=== PATIENT | female | born 1995 | race Caucasian/White ===

== ENCOUNTER → 2021-12-26 09:34 | Outpatient (BNVA) | payer MEDICAID, SELFPAY | PROVIDERS: Referring Provider Nurse Practitioner; Visit Provider Orthopaedic Surgery | DX: M25.551 Pain in right hip (principal); M54.50 Low back pain, unspecified; G89.29 Other chronic pain | CPT/HCPCS: 73502 ==

== ENCOUNTER → 2022-01-11 11:18 | Outpatient (BNVA) | payer MEDICAID, SELFPAY | PROVIDERS: Visit Provider Physician Assistant | DX: M51.36 Other intervertebral disc degeneration, lumbar region (principal); M47.818 Spondylosis without myelopathy or radiculopathy, sacral and sacrococcygeal region; M16.51 Unilateral post-traumatic osteoarthritis, right hip; M41.9 Scoliosis, unspecified | CPT/HCPCS: 72110; 99205 ==

== ENCOUNTER 2022-05-28 19:43 | Emergency (ER) | payer MEDICAID, SELFPAY ==
[2022-05-28 20:41] VITALS: BP 144/88; PULSE 78; RESP 18; TEMP 36.6; O2SAT 100; BMI 25.8
--- NOTE | 2022-05-28 22:24 | W.ED.ALLEREA ---
HPI - Allergic Reaction General: Chief complaint: Allergic Reaction Stated complaint: Allergic reaction\Rash\Legs Swelling Time Seen by Provider: 05/28/22 22:22 History of Present Illness: HPI narrative: 26-year-old female comes in for generalized urticaric rash that started on Saturday. Patient does not know of any exposure to allergen. Patient does have a history of allergies to latex and natural rubber. Patient appears nontoxic. Patient reports increased swelling to lower extremities along with the rash. Respirations are even lungs are clear to auscultation. Patient has some significant swelling to the face. Associated symptoms: Reports nausea; Deny vomiting Review of Systems General: Reports: 10 or more systems reviewed and unremarkable except in HPI and below Card: Denies: chest pain Resp: Denies: dyspnea GI: Reports: nausea; Denies: vomiting : Denies: difficulty voiding Musc: Denies: back pain Skin/Breast: Reports: rash and skin tenderness PFS ED PFSH: Social History Smoking and tobacco status: never smoked Physical Exam Const: COMMON NORMALS: alert HENMT: FACE & SINUS: other (Mild facial swelling) MOUTH: Normal oral and palatal mucosa present THROAT: posterior oropharynx normal Eye: COMMON NORMALS: Equal, round and reactive pupils present and EOMs intact bilaterally PUPIL: Yes Equal, round and reactive pupils present Resp: COMMON NORMALS: normal respiratory effort and clear to auscultation bilaterally AUSCULTATION: clear to auscultation bilaterally Cardio: COMMON NORMALS: regular rate and regular rhythm RATE: regular rate RHYTHM: regular rhythm GI: COMMON NORMALS: Soft to palpation and non-tender PALPATION: Yes Soft to palpation : COMMON NORMALS: Yes no CVA tenderness BLADDER/KIDNEY EXAM: Yes no CVA tenderness Back/Pelvis: COMMON NORMALS: no CVA tenderness Extremity: NARRATIVE EXTREMITY EXAM: Mild swelling to bilateral ankles, +1 Neuro: SENSORIUM/ORIENTATION: Yes alert Skin: RASHES: rashes noted (Generalized urticarial rash) Course Vital Signs: Vital signs: Vital Signs Temperature 98 F 05/28/22 20:41 Pulse Rate 78 05/28/22 20:41 Respiratory Rate 18 05/28/22 20:41 Blood Pressure 144/88 05/28/22 20:41 Pulse Oximetry 100 05/28/22 20:41 Oxygen Delivery Me thod Room Air 05/28/22 20:41 MDM - Allergic Reaction Medical Decision Making 26-year-old female comes in today for complaints of itchy rash that started 3 days ago on Saturday. Patient denies any exposure to known allergen, latex. Respirations are even lungs are clear to auscultation. Vital signs are normal. Patient has swelling to the face and lower extremities. Generalized urticarial rashes noted. Differential diagnosis includes idiopathic urticaria, allergic reaction, anaphylaxis. Patient was treated with 0.3 mg of epinephrine due to the severity of the urticaria and the swelling to the face and lower extremities. Patient had improvement in rash and swelling significantly. Patient was also given Solu-Medrol and diphenhydramine IV. Along with famotidine. Patient reported improvement of symptoms overall. Recommended patient continue with cetirizine 10 mg 1 to 2 tablets twice a day for control of her urticaric rash. Also prednisone 20 mg twice a day for allergic reaction. I encourage plenty of fluids and follow-up with primary care for repeat evaluation. Patient reported understanding and agreed to plan. Lab Data 05/28/22 22:50 05/28/22 22:50 Laboratory Results WBC 7.6 10^3/uL (4.0-10.0) 05/28/22 22:50 RBC 4.45 10^6/uL (4.1-5.3) 05/28/22 22:50 Hgb 13.5 g/dL (11.5-15.3) 05/28/22 22:50 Hct 41.7 % (37.0-47.0) 05/28/22 22:50 MCV 93.7 fl (81-99) 05/28/22 22:50 MCH 30.3 pg (28.0-34.0) 05/28/22 22:50 MCHC 32.4 g/dL (30.0-36.0) 05/28/22 22:50 RDW 13.7 % (12.1-15.1) 05/28/22 22:50 Plt Count 188 10^3/cmm (130-400) 05/28/22 22:50 MPV 11.0 fL (7.4-10.4) H 05/28/22 22:50 Neut % (Auto) 68.9 % 05/28/22 22:50 Lymph % (Auto) 24.3 % 05/28/22 22:50 [place] % (Auto) 5.0 % 05/28/22 22:50 Eos % (Auto) 1.6 % 05/28/22 22:50 Baso % (Auto) 0.1 % 05/28/22 22:50 Neut # (Auto) 5.25 10^3/uL (1.8-7.7) 05/28/22 22:50 Lymph # (Auto) 1.9 10^3/uL (0.8-4.8) 05/28/22 22:50 [place] # (Auto) 0.4 10^3/uL (0.2-0.9) 05/28/22 22:50 Eos # (Auto) 0.1 10^3/uL (0.0-0.8) 05/28/22 22:50 Baso # (Auto) 0.0 10^3/uL (0.0-0.1) 05/28/22 22:50 Nucleated RBC % (auto) 0 % 05/28/22 22:50 Nucleated RBCs # 0.0 /100WBC 05/28/22 22:50 Sodium 137 mmol/L (136-145) 05/28/22 22:50 Potassium 4.0 mmol/L (3.5-5.1) 05/28/22 22:50 Chloride 103 mmol/L (98-107) 05/28/22 22:50 Carbon Dioxide 23 mmol/L (22-29) 05/28/22 22:50 Anion Gap 15.0 (5-19) 05/28/22 22:50 BUN 10 mg/dL (6-20) 05/28/22 22:50 Creatinine 0.7 mg/dL (0.5-0.9) 05/28/22 22:50 GFR Calculation 100.4 mL/min (90-130) 05/28/22 22:50 Glucose 84 mg/dL (65-115) 05/28/22 22:50 Calculated Osmolality 282 mOsm/kg (285-295) L 05/28/22 22:50 Calcium 9.2 mg/dL (8.5-10.5) 05/28/22 22:50 Total Bilirubin 0.2 mg/dL (0.15-1.2) 05/28/22 22:50 AST 17 U/L (0-32) 05/28/22 22:50 ALT 14 U/L (0-33) 05/28/22 22:50 Alkaline Phosphatase 61 U/L (35-105) 05/28/22 22:50 Total Protein 6.9 g/dL (6.6-8.7) 05/28/22 22:50 Albumin 4.0 g/dL (3.5-5.2) 05/28/22 22:50 Globulin 2.9 g/dL (1.3-4.6) 05/28/22 22:50 HCG, Qual Negative (Negative) 05/28/22 22:50 Discharge Plan Discharge Patient Disposition: Home Clinical Impression: Allergic reaction Qualifiers: Encounter type: initial encounter Qualified Code(s): T78.40XA - Allergy, unspecified, initial encounter Condition: Stable Prescriptions: New prednisone 20 mg tablet 20 mg PO BID 5 Days Qty: 10 0RF No Action lidocaine 5 % adhesive patch,medicated 1 patch topical DAILY Rx Instructions: leave on most painful area for up to 12 hrs Discharge Orders: Discharge ED (Routine); Ordered 05/28/22 Ordered By: Efren Almendarez Discharge Diet: Usual diet Discharge Activity: Increase activity as tolerated Patient Instructions: Urticaria (ED) Activity Restrictions/Additional Instructions: Continue with Zyrtec 1 to 2 tablets 2 times daily until rash resolves. I would recommend starting with 2 tablets at bedtime and then 1 tablet in the morning to control hives. Drink plenty of water with medications. Take prednisone 20 mg twice a day for the next 5 days. Follow-up with primary care in 3 to 5 days for recheck. Return to ER for worsening symptoms such as increased shortness of breath, severe chest pain, or new concerns. Coding Level of Care Code ED Regulatory Affairs Coordinator for Lyssa King
[2022-05-28 23:03] LABS: Basophils % 0.1 %; Eosinophils # 0.1 10^3/uL (0.0-0.8); Eosinophils % 1.6 %; Hematocrit 41.7 % (37.0-47.0); Hemoglobin 13.5 g/dL (11.5-15.3); Lymphocytes # 1.9 10^3/uL (0.8-4.8); Lymphocytes % 24.3 %; Mean Corpuscular HGB Conc 32.4 g/dL (30.0-36.0); Mean Corpuscular Hemoglobin 30.3 pg (28.0-34.0); Mean Corpuscular Volume 93.7 fl (81-99); Monocytes # 0.4 10^3/uL (0.2-0.9); Neutrophils # 5.25 10^3/uL (1.8-7.7); Neutrophils % 68.9 %; Nucleated Red Blood Cells % 0 %; Platelet Count 188 10^3/cmm (130-400); Red Blood Count 4.45 10^6/uL (4.1-5.3); Red Cell Distribution Width 13.7 % (12.1-15.1); White Blood Count 7.6 10^3/uL (4.0-10.0)
[2022-05-28] MEDS: sodium chloride 0.9% 250 ML IV (23:06)
[2022-05-28] MEDS: diphenhydrAMINE 50 mg/mL SDV 1mL 25 MG IVP (23:09)
[2022-05-28] MEDS: EPINEPHrine 1 mg/mL INJ 0.3 MG IM (23:10)
[2022-05-28] MEDS: famotidine 20 mg/2 mL INJ 40 MG IVP (23:11)
[2022-05-28 23:17] LABS: HCG, Serum Qual Negative (Negative)
[2022-05-28 23:22] LABS: Alanine Aminotransferase 14 U/L (0-33); Alkaline Phosphatase 61 U/L (35-105); Aspartate Amino Transferase 17 U/L (0-32); Blood Urea Nitrogen 10 mg/dL (6-20); Calcium 9.2 mg/dL (8.5-10.5); Carbon Dioxide 23 mmol/L (22-29); Chloride 103 mmol/L (98-107); Globulin 2.9 g/dL (1.3-4.6); Glomerular Filtration Rate 100.4 mL/min (90-130); Glucose 84 mg/dL (65-115); Osmolality Calculated 282 mOsm/kg (285-295); Sodium 137 mmol/L (136-145); Total Bilirubin 0.2 mg/dL (0.15-1.2); Total Protein 6.9 g/dL (6.6-8.7)
[2022-05-28 23:54] VITALS: PULSE 76; RESP 18; O2SAT 99
--- NOTE | 2022-06-01 11:20 | DCPLANNER ---
[facility] called patient due to no primary care physician - patient declines at this time, waiting on insurance.
== END 2022-05-28 23:54 | disposition home or self-care (01) ==
PROVIDERS: Emergency Provider Nurse Practitioner Family
DX: L50.0 Allergic urticaria (principal); T78.40XA Allergy, unspecified, initial encounter; X58.XXXA Exposure to other specified factors, initial encounter
CPT/HCPCS: 80053; 84703; 85025; 96361; 96372; 96374; 96375; 99284; J0171; J1200; J2930; J3490; J7050

== ENCOUNTER → 2022-06-26 10:45 | Outpatient (BNVA) | payer MEDICAID, SELFPAY | PROVIDERS: PCP Nurse Practitioner; Visit Provider Nurse Practitioner | DX: L67.8 Other hair color and hair shaft abnormalities (principal) | CPT/HCPCS: 84443 ==

== ENCOUNTER 2022-07-26 09:27 | Outpatient (CLI) | payer BC, MEDICAID, SELFPAY ==
--- NOTE | 2022-07-26 09:30 | US_ITS ---
WS: [id number] US transvaginal [id number] HISTORY: N83.209 - Unspecified ovarian cyst, unspecified side COMPARISON: None available. Uterus: 7.2 cm x 5.3 cm x 4.4 cm. Normal size anteverted uterus. No fibroid or mass. Endometrium: 0.9 cm. Normal. Right ovary: 3.8 cm x 2.8 cm x 3.0 cm. Volume: 17 cc. Normal size and vascularity, no cystic or solid masses. Multiple small peripheral follicles. Number of follicles is approaching 20. Dominant follicl e measures 2.6 x 2.4 x 2.2 cm. Left ovary: 3.3 cm x 2.0 cm x 2.0 cm. Volume: 6.8 cc. Normal size and vascularity, no cystic or solid masses. No free fluid in the cul-de-sac. US/US transvaginal [id number] IMPRESSION: 1. Normal endometrium. 2. Mild RIGHT ovarian enlargement with multiple small peripheral follicles. Nu mber of follicles approaching 20. Consider PCOS.
--- NOTE | 2022-07-26 10:00 | US_ITS ---
WS: [email or web address] RENAL ULTRASOUND HISTORY: Z87.448 - Personal history of other diseases of urinary system. COMPARISON: None available. TECHNIQUE: 2-D and color Doppler imaging of the kidney submitted. Right kidney: 10.8 cm x 4.1 cm x 6.2 cm. Cortex: 1.3 cm Normal echogenicity with no hydronephrosis or mass. Small cyst measuring 1.1 x 1.2 x 1.0 cm in the ce ntral kidney. Left kidney: 11.3 cm x 4.2 cm x 4.3 cm. Cortex: 1.3 cm Normal echogenicity with no hydronephrosis or mass. Aorta: Normal. Urinary Bladder: Normal distention. US/US renal BI* [id number] IMPRESSION: 1. No solid mass. 2. Central RIGHT renal cyst maximum diameter of 1.2 cm. 3. No hydronephrosis.
== END 2022-07-26 09:28 | disposition home or self-care (01) ==
PROVIDERS: PCP Nurse Practitioner; Visit Provider Nurse Practitioner
DX: N83.209 Unspecified ovarian cyst, unspecified side (principal); N28.1 Cyst of kidney, acquired; Z87.448 Personal history of other diseases of urinary system
CPT/HCPCS: 76770; 76830

== ENCOUNTER → 2022-08-13 15:30 | Outpatient (BNVA) | payer BC, MEDICAID, SELFPAY | PROVIDERS: PCP Nurse Practitioner; Referring Provider Nurse Practitioner; Visit Provider Obstetrics & Gynecology | DX: E28.2 Polycystic ovarian syndrome (principal); Z12.4 Encounter for screening for malignant neoplasm of cervix | CPT/HCPCS: 84146; 84403; 88175 ==

== ENCOUNTER → 2023-06-12 09:36 | Outpatient (BNVA) | payer BC, MEDICAID, SELFPAY | PROVIDERS: PCP Nurse Practitioner Family; Visit Provider Nurse Practitioner Family | DX: Z79.899 Other long term (current) drug therapy (principal); Z13.6 Encounter for screening for cardiovascular disorders; R53.83 Other fatigue | CPT/HCPCS: 80053; 80061; 81003; 83036; 84443; 85025 ==

== ENCOUNTER 2024-12-09 09:27 | Outpatient (CLI) | payer MEDICAID, SELFPAY ==
--- NOTE | 2024-12-09 09:15 | US_ITS ---
WS: [email or web address] US pelv w/transvag [id number] HISTORY: N83.209 - Unspecified ovarian cyst, unspecified side COMPARISON: 07/26/2022 Uterus: 7.5 cm x 3.9 cm x 3.7 cm. Normal size anteverted uterus. No fibroid or mass. Endometrium: 1.0 cm. Normal. Right ovary: 3.9 cm x 3.8 cm x 1.7 cm. Normal size and vascularity, no cystic or solid masses. There are a few small follicles. Left ovary: 3.1 cm x 1.9 cm x 2.3 cm. Normal size and vascularity, no cystic or solid masses. There are a few small peripheral follicles. No free fluid in the cul-de-sac. US/US pelv w/transvag [id number] IMPRESSION: 1. No ovarian cyst. 2. Small peripheral ovarian follicles. The number of follicles does not approa ch PCOS on today's exam.
--- NOTE | 2024-12-09 09:34 | XR_ITS ---
WS: [email or web address] Exam: XR hip LT 2-3V wo/w pel* [id number] Date/Time of Exam: 12/09/2024 10:05 AM Reason For Exam: M25.552 - Pain in left hip No fracture. The joint compartment is preserved. Normal soft tissues. XR/XR hip LT 2-3V wo/w pel* [id number] IMPRESSION: 1. Normal LEFT hip.
--- NOTE | 2024-12-09 09:34 | XR_ITS ---
WS: [email or web address] Exam: XR hip RT 2-3V wo/w pel* [id number] Date/Time of Exam: 12/09/2024 10:05 AM Reason For Exam: M16.51 - Unilateral post-traumatic osteoarthritis, right hip No acute fracture. The joint compartment is relatively well-maintained. Extensive plate and screw fixation hardware in the right pelvis. Normal soft tissues. Moderate DJD of the sacroiliac joints. XR/XR hip RT 2-3V wo/w pel* [id number] IMPRESSION: 1. No hip fracture. The joint compartment is relatively well-maintained. 2. Healed RIGHT pelvic fractures with extensive intact hardware..
--- NOTE | 2024-12-09 09:34 | XR_ITS ---
WS: [email or web address] Exam: XR lumbar spine 6V w f/e [id number] Date/Time of Exam: 12/09/2024 10:05 AM Reason For Exam: M16.51 - Unilateral post-traumatic osteoarthritis, right hip DLP: Comparison 01/11/2022. No acute fracture identified. There is moderate levoscoliosis of the lower thoracic and lumbar spine. Disc spaces are preserved. Posterior elements are intact. No flexion or extension instability identified. Degenerative change in the bilateral SI joints. There may be sacralization of L5. XR/XR lumbar spine 6V w f/e [id number] IMPRESSION: 1. No fracture or instability identified. 2. Levoscoliosis of the lower thoracic and lumbar spine.
[2024-12-09 10:47] LABS: Hematocrit 40.8 % (36-47); Hemoglobin 13.60 g/dL (11.27-16.99); Mean Corpuscular HGB Conc 33.3 g/dL (30-55); Mean Corpuscular Hemoglobin 32.6 pg (27-33); Mean Corpuscular Volume 97.8 fl (85-98); Nucleated Red Blood Cells % 0 %; Platelet Count 202 10^3/cmm (157-399); Red Blood Count 4.17 10^6/uL (3.85-5.65); White Blood Count 6.46 10^3/uL (3.29-11.43)
[2024-12-09 11:11] LABS: Glucose Urine UA Negative (Normal); Nitrate Urine Negative (Negative); Specific Gravity, Urine 1.005 (1.005-1.030)
[2024-12-09 11:19] LABS: Estmated Average Glucose 97; Hemoglobin A1C 5.0 % (4.0-6.0)
[2024-12-09 11:30] LABS: Alanine Aminotransferase 21 U/L (0-33); Albumin Level 4.2 g/dL (3.5-5.2); Alkaline Phosphatase 48 U/L (35-105); Anion Gap 15.1 (5-19); Aspartate Amino Transferase 17 U/L (0-32); Blood Urea Nitrogen 8 mg/dL (6-20); Calcium 8.9 mg/dL (8.5-10.5); Carbon Dioxide 22 mmol/L (22-29); Chloride 105 mmol/L (98-107); Cholesterol 153 mg/dL (0-200); Globulin 2.8 g/dL (1.3-4.6); Glucose 89 mg/dL (65-115); HDL Cholesterol 43 mg/dL (60-100); Osmolality Calculated 284 mOsm/kg (285-295); Potassium 4.1 mmol/L (3.5-5.1); Sodium 138 mmol/L (136-145); Thyroid Stimulating Hormone 3.48 uIU/mL (0.27-4.20); Total Protein 7.0 g/dL (6.6-8.7); Triglycerides 85 mg/dL (0-150)
== END 2024-12-09 09:28 | disposition home or self-care (01) ==
LOC: RAD 09:30
PROVIDERS: PCP Nurse Practitioner Family; Visit Provider Nurse Practitioner Family
DX: M25.552 Pain in left hip (principal); N83.209 Unspecified ovarian cyst, unspecified side; Z80.41 Family history of malignant neoplasm of ovary; M16.51 Unilateral post-traumatic osteoarthritis, right hip; M54.50 Low back pain, unspecified; G89.29 Other chronic pain; Z79.899 Other long term (current) drug therapy; Z13.6 Encounter for screening for cardiovascular disorders; E55.9 Vitamin D deficiency, unspecified; M41.86 Other forms of scoliosis, lumbar region; M41.84 Other forms of scoliosis, thoracic region; M46.1 Sacroiliitis, not elsewhere classified; R93.7 Abnormal findings on diagnostic imaging of other parts of musculoskeletal system; Z87.81 Personal history of (healed) traumatic fracture
CPT/HCPCS: 36415; 72114; 73502; 76830; 76856; 80053; 80061; 81001; 82306; 83036; 84443; 85025

== ENCOUNTER 2024-12-22 12:52 | Outpatient (RCR) | payer MEDICAID, SELFPAY | END 2025-01-10 23:59 | disposition home or self-care (01) | LOC: WPT 12:52 | PROVIDERS: PCP Nurse Practitioner Family; Visit Provider Nurse Practitioner Family | DX: M54.9 Dorsalgia, unspecified (principal); G89.29 Other chronic pain | CPT/HCPCS: 97110; 97530 ==

== ENCOUNTER → 2025-01-01 15:26 | Outpatient (BNVA) | payer MEDICAID, SELFPAY | PROVIDERS: PCP Nurse Practitioner Family; Visit Provider Nurse Practitioner Family | DX: J02.9 Acute pharyngitis, unspecified (principal) | CPT/HCPCS: 87880 ==

== ENCOUNTER 2025-01-11 06:30 | Outpatient (RCR) | payer MEDICAID, SELFPAY | END 2025-01-19 13:38 | disposition home or self-care (01) | LOC: WPT 06:30 | PROVIDERS: PCP Nurse Practitioner Family; Visit Provider Nurse Practitioner Family | DX: M54.9 Dorsalgia, unspecified (principal); G89.29 Other chronic pain | CPT/HCPCS: 97110; 97530 ==